=== PATIENT | male | born 1990 | race Caucasian/White ===

== ENCOUNTER 2017-01-19 13:11 | Emergency (ER) | payer SELFPAY ==
[~2017-01-19] VITALS: Ht 167.6 cm; Wt 54.8 kg
[2017-01-19] MEDS ORDERED: ZOFRAN ODT4 MG PO (14:35)
[2017-01-19 14:58] VITALS: BP 116/71
== END 2017-01-19 14:58 | disposition home or self-care (01) ==
LOC: EME 13:11
DX: K52.9 Noninfective gastroenteritis and colitis, unspecified (principal); F17.200 Nicotine dependence, unspecified, uncomplicated
CPT/HCPCS: 99281; 99284